=== PATIENT | female | born 1965 | race Caucasian/White ===

== ENCOUNTER 2019-01-19 07:23 | Emergency (ER) | payer OTHER, SELFPAY ==
[2019-01-19 07:24] VITALS: BP 136/82; PULSE 58; RESP 16; TEMP 36.4; O2SAT 98; BMI 27.1
--- NOTE | 2019-01-19 07:38 | ED.VISSUMM ---
- ER Visit Summary Date of Service: 01/19/19 Chief Complaint: Back pain History of Present Illness: The patient is a 53 F who presents the emergency department with low back pain. Patient states that yesterday she was in her garage working she suddenly felt her back tighten. She states she has had significant painful range of motion. She notes pain radiating from the low back into the bilateral buttocks and the posterior thighs. She denies any bowel or bladder dysfunction. Denies any muscle weakness or loss of sensation. No fevers. No IV drug use. No rashes. History of the same though this has not been to this extent for about 12 years. No prior back surgeries. She has been using naproxen without relief. Physical Examination: Afebrile vital signs stable Gen: Well-nourished well-developed Head: Normocephalic atraumatic Eyes: Perrl EOMI ENT: TMs clear no rhinorrhea moist mucous membranes Neck: Supple no lymphadenopathy no JVD nontender CVS: Regular rate rhythm no murmurs normal S1-S2 Respiratory: No distress clear to auscultation bilaterally chest nontender Abdomen: Soft nontender nondistended normal bowel sounds no masses Back: Visible and palpable muscle spasm right greater than left of the lumbar paraspinal musculature. Limited range of motion due to pain. Extremity: Nontender no edema Skin: Normal color no rash Neuro: alert orientated ?3 CN II-XII intact normal strength sensation reflexes antalgic gait Psych: Normal affect normal mood Emergency Department Course and Treatment: Patient received oral Valium and [place] as well as IM Toradol. She will receive a prescription for same. We talked about stretching. Return instructions understood. Aloe up with primary care return if worsening Impression: 1. Acute lumbar muscle spasm 2. Sciatica This note was generated with [email or web address] dictation software. It may contain incorrect words, spelling, and punctuation that were not noted in review of the chart prior to signing ED Disposition - Plan for ED Patient: Disposition: Home or Assisted Living Instructions: ED Spasm Back No Trauma Prescriptions: Hydrocodone Bitart/Apap 5-325 [[place] 5MG-325MG] 1 tab PO Q6H PRN PRN 3 Days #12 tab PRN Reason: Pain Diazepam [Valium] 5 mg PO Q8 PRN #15 tab PRN Reason: Muscle Spasm Ketorolac [Toradol] 10 mg PO TID PRN PRN #15 tab PRN Reason: Pain Referrals: Titus Elliott MD [Primary Care Provider] - 1 Week if not improving
[2019-01-19] MEDS: HYDROcodone Bitartrate/Apap 5/325 Tablet PO (07:42)
[2019-01-19] MEDS: diazePAM 5 MG Tablet PO (07:42)
[2019-01-19] MEDS: Ketorolac 60 MG/2 ML Vial IM (07:43)
--- NOTE | 2019-01-19 07:47 | ED.DCSUM_ITS ---
- ER Visit Summary Date of Service: 01/19/19 Chief Complaint: Back pain History of Present Illness: The patient is a 53 F who presents the emergency department with low back pain. Patient states that yesterday she was in her garage working she suddenly felt her back tighten. She states she has had significant painful range of motion. She notes pain radiating from the low back into the bilateral buttocks and the posterior thighs. She denies any bowel or bladder dysfunction. Denies any muscle weakness or loss of sensation. No fevers. No IV drug use. No rashes. History of the same though this has not been to this extent for about 12 years. No prior back surgeries. She has been using naproxen without relief. Physical Examination: Afebrile vital signs stable Gen: Well-nourished well-developed Head: Normocephalic atraumatic Eyes: Perrl EOMI ENT: TMs clear no rhinorrhea moist mucous membranes Neck: Supple no lymphadenopathy no JVD nontender CVS: Regular rate rhythm no murmurs normal S1-S2 Respiratory: No distress clear to auscultation bilaterally chest nontender Abdomen: Soft nontender nondistended normal bowel sounds no masses Back: Visible and palpable muscle spasm right greater than left of the lumbar paraspinal musculature. Limited range of motion due to pain. Extremity: Nontender no edema Skin: Normal color no rash Neuro: alert orientated ?3 CN II-XII intact normal strength sensation reflexes antalgic gait Psych: Normal affect normal mood Emergency Department Course and Treatment: Patient received oral Valium and [place] as well as IM Toradol. She will receive a prescription for same. We talked about stretching. Return instructions understood. Aloe up with primary care return if worsening Impression: 1. Acute lumbar muscle spasm 2. Sciatica This note was generated with [employer] dictation software. It may contain incorrect words, spelling, and punctuation that were not noted in review of the chart prior to signing ED Disposition - Plan for ED Patient: Disposition: Home or Assisted Living Instructions: ED Spasm Back No Trauma Prescriptions: Hydrocodone Bitart/Apap 5-325 [[place] 5MG-325MG] 1 tab PO Q6H PRN PRN 3 Days #12 tab PRN Reason: Pain Diazepam [Valium] 5 mg PO Q8 PRN #15 tab PRN Reason: Muscle Spasm Ketorolac [Toradol] 10 mg PO TID PRN PRN #15 tab PRN Reason: Pain Referrals: Titus Elliott MD [Primary Care Provider] - 1 Week if not improving
[2019-01-19 08:16] VITALS: BP 128/30; PULSE 55; RESP 17; O2SAT 99
== END 2019-01-19 08:17 | disposition home or self-care (01) ==
PROVIDERS: Emergency Provider Emergency Medicine; Family Provider Family Medicine; PCP Family Medicine
DX: M62.830 Muscle spasm of back (principal); M54.40 Lumbago with sciatica, unspecified side; F32.9 Major depressive disorder, single episode, unspecified
CPT/HCPCS: 96372; 99283

== ENCOUNTER → 2020-04-29 17:52 | Outpatient (CLI) | payer OTHER, SELFPAY | PROVIDERS: PCP Family Medicine; Referring Provider Nurse Practitioner Family; Visit Provider Nurse Practitioner Family | DX: Z20.828 Contact with and (suspected) exposure to other viral communicable diseases (principal) | CPT/HCPCS: 87635; G2023; U0003 ==

== ENCOUNTER 2020-05-02 09:16 | Emergency (ER) | payer OTHER, SELFPAY ==
[2020-05-02 09:17] VITALS: BP 153/105; PULSE 54; RESP 18; TEMP 36.6; O2SAT 98; BMI 27.4
[2020-05-02 09:25] VITALS: BP 160/98; PULSE 52; RESP 13; O2SAT 98
--- NOTE | 2020-05-02 09:33 | EKG12_ITS ---
Test Reason : Blood Pressure : / mmHG Vent. Rate : 057 BPM Atrial Rate : 057 BPM P-R Int : 170 ms QRS Dur : 078 ms QT Int : 458 ms P-R-T Axes : 034 034 048 degrees QTc Int : 445 ms Sinus bradycardia Otherwise normal ECG Confirmed by BRINA PINA, CHARMAINE ([id number]), editor news BOB CLARKE ([id number]) on 05/04/2020 1:09:12 PM Referred By: MOMO Confirmed By:CHARMAINE GONSALVES MD
--- NOTE | 2020-05-02 09:33 | RAD_ITS ---
STUDY: X-RAY CHEST REASON FOR EXAM: Female, 54 years old. PT WITH CHEST PAIN SINCE MARCH. PAIN IS NOT WANING. STAYS CONSTANT. WORSE WITH DEEP BREATH TECHNIQUE: Single AP portable view of the chest. COMPARISON: Comparison is made with prior study dated September 27, 2015. FINDINGS: EKG electrodes are seen. The lungs are clear and expanded. There is no demonstrated pleural abnormality. Normal size heart. Normal mediastinum and dewayne. Normal visualized pulmonary arteries. There is atherosclerotic tortuosity of the aortic arch and descending thoracic aorta. Normal visualized thoracic spine. Normal visualized ribs, clavicles, and shoulders. There is no demonstrated abnormality of the visualized soft tissue structures of the upper abdomen. RAD/Chest 1 View (Portable) IMPRESSION: Normal x-ray examination of the chest. Electronically Signed: Lex Ho, at 10:03 EDT , Service support ,
[2020-05-02 09:39] VITALS: O2SAT 98
[2020-05-02] MEDS: Aspirin 81 MG TAB.CHEW 324 MG PO (09:40)
[2020-05-02] MEDS: 0.9% Normal Saline 1,000 ML 150 ML IV (09:43)
[2020-05-02 09:45] LABS: Absolute Lymphocyte Count 1.94 X10^3/uL (0.83-4.51); Absolute Neutrophil Count 4.8 X10^3/uL (2.0-7.7); Basophil# 0.02 X10^3/uL; Basophil% 0.3 % (0-1); Eosinophil# 0.12 X10^3/uL; Eosinophils% 1.6 % (0-5); Hematocrit 45.2 % (37-47); Hemoglobin 14.7 g/dL (12.0-15.0); Lymphocyte # 1.94 X10^3/ul (4.0); Lymphocyte % 26.3 % (19-41); Mean Corp Hgb Conc 32.5 g/dL (32-36); Mean Corpuscular Hgb 31.4 pg (27.0-32.0); Mean Corpuscular Volume 96.6 fL (81-99); Mean Platelet Vol. 10.8 fl (6.2-12.0); Monocyte# 0.48 X10^3/uL; Monocyte% 6.5 % (0-10); NRBC Flagged by Analyzer 0 % (0-5); Neutrophil # 4.81 X10^3/uL (2.7-7.7); Platelet Count 234 K/mm3 (150-450); RBC Distribution Width CV 14.3 % (11.6-14.6); RBC Distribution Width SD 49.8 fl (35.1-43.9); Red Blood Count 4.68 M/mm3 (4.2-5.4); White Blood Count 7.4 K/mm3 (4.4-11.0)
--- NOTE | 2020-05-02 09:45 | ED.DCSUM_ITS ---
- ER Visit Summary Date of Service: 05/02/20 Chief Complaint: [Chest pain] History of Present Illness: The patient is a 54 F [presents to the emergency department complaint of chest discomfort for the last 2 weeks. Patient states the discomfort is been continuous and kind of a dull ache. The discomfort does not seem to be exertional. Patient states she notices more when she takes a deep breath. She denies any fever or cough or recent illness. Patient was recently in [place] and they did drive there. She has no history of PE or DVT. Patient had a rash to weeks ago for which she was treated with prednisone that initially was thought to be poison thom then was told it may be a viral exanthem. The rash is since resolved. Patient has history of hypertension but not currently medicated states that her blood pressure normally runs in the 145 systolic range. Patient has not had discomfort quite like this before. She denies any abdominal pain. She has no heart history. No significant family history of heart disease. Patient denies any nausea or vomiting or radiation of the pain.] Patient does have history of bradycardia. Physical Examination: [HEENT-PERRLA, EOMI. Cranial nerves II through XII grossly intact. TMs clear. Mucous membranes moist. No adenopathy. Cardiovascular-regular rate and rhythm without murmur or ectopy Lungs-clear to auscultation, chest wall stable without crepitus or subcu emphysema Abdomen-normoactive bowel sounds, soft, nontender, no rebound or rigidity, no peritoneal signs. Extremities-intact ?4, normal range of motion, normal pulses, atraumatic] Test Results: [EKG obtained on arrival shows sinus rhythm with a ventricular rate of 57 bpm with no acute ST segment changes. CBC with differential was unremarkable. Chemistries unremarkable. Troponin was less than 0.015. D-dimer was slightly elevated 0.55. Chest x-ray showed nothing acute. CTA of the chest was negative for PE or dissection.] Emergency Department Course and Treatment: [Patient received aspirin on arrival. She refused nitroglycerin tablets.] Treatment Plan: [Discussed with patient that she is a MELODIE risk score of 0 and feel she is low risk for acute coronary syndrome given that she is had continuous pain for over 2 weeks and has a normal work-up at this time. Patient also does not have exertional symptoms. I discussed with patient admission for stress testing versus outpatient stress testing. At this point are comfortable with following up with primary care physician and having an outpatient stress test performed if symptoms persist. They are advised to return to the ER if worsening pain, exertional symptoms, or condition should worsen anyway.] Disposition: [Discharged home in stable condition] Impression: [Chest pain-etiology uncertain] This note was generated with [employer] dictation software. It may contain incorrect words, spelling, and punctuation that were not noted in review of the chart prior to signing ED Disposition - Plan for ED Patient: Referrals: Titus Elliott MD [Primary Care Provider] -
[2020-05-02 09:59] LABS: D-Dimer Quantitative (DVT/PE) 0.55 FEU/ug/m (0.27-0.49)
--- NOTE | 2020-05-02 10:00 | CT_ITS ---
STUDY: CTA CHEST REASON FOR EXAM: Female, 54 years old. PT STATED CHEST PAIN X 2 WEEKS RADIATION DOSAGE (If Supplied By Facility): CTDIvol = ( 11.98 ) mGy, DLP = ( 405.07 ) mGycm TECHNIQUE: The examination was performed with the intravenous administration of 100ML ISOVUE 370. Post-processing of the angiographic images was performed, with multiplanar reformation and 3D reconstruction. Individualized dose optimization techniques were used for this CT. COMPARISON: None. FINDINGS: Normal enhancement of the main pulmonary artery and right and left pulmonary arteries. Normal enhancement of the bilateral peripheral pulmonary arteries. There is no demonstrated pulmonary embolism. Normal thoracic aorta and visualized great vessels. There is no demonstrated aortic dissection. Normal heart and pericardium. Normal mediastinum. Normal hilar regions. Normal visualized trachea and bronchi. The lungs are well expanded. Normal pulmonary parenchyma. Normal pleura. Normal chest wall structures. There are degenerative changes of thoracic spine. There is a 1.6 cm x 1.2 cm hypodense nodule in the left adrenal gland suggestive of a small adrenal adenoma. CT/CTA Chest W/WO Contrast IMPRESSION: Normal CTA chest examination, without a demonstrated pulmonary embolism or arterial dissection. Small left adrenal adenoma. Electronically Signed: Lex Ho, at 10:53 EDT , Service support ,
[2020-05-02 10:01] LABS: Anion Gap 8 (5-15); BUN 9 mg/dL (7-18); Calcium,Total 8.7 mg/dL (8.5-10.1); Chloride 102 mmol/L (98-107); EST Glomerular Filtration Rate 69 mL/min (>60); Est Glom Filt Rate - Afr Amer 84 mL/min (>60); Estimated Creatinine Clearance 67.67 ml/min; Glucose 112 mg/dL (74-106); Potassium 3.6 mmol/L (3.5-5.1); Sodium Level 138 mmol/L (136-145)
[2020-05-02 10:23] VITALS: BP 145/87; PULSE 46; RESP 11; O2SAT 100
[2020-05-02 11:03] VITALS: BP 150/77; PULSE 41; RESP 10; O2SAT 96
--- NOTE | 2020-05-02 11:22 | ED.DEP ---
ED Disposition - Plan for ED Patient: Instructions: ED Chest Pain Atypical Unkn Cause Referrals: Titus Elliott MD [Primary Care Provider] - 3-5 Days
[2020-05-02 11:56] VITALS: BP 158/79; PULSE 74; RESP 18; O2SAT 98
--- NOTE | 2020-05-02 11:57 | ED.RN ---
THIS NURSE REVIEWED D/C WITH PT AND VISITOR. PT VERBALIZED UNDERSTANDING OF INSTRUCTIONS. IV D/C. IV CATHETER INTACT. PT TOLERATED WELL. PT DENIES FURTHER NEEDS OR QUESTIONS AT THIS TIME. PT AMBULATES FROM ROOM ON OWN WITHOUT ASSISTANCE FROM STAFF
== END 2020-05-02 11:59 | disposition home or self-care (01) ==
LOC: ED 10:41
PROVIDERS: Emergency Provider Emergency Medicine; PCP Family Medicine
DX: R07.9 Chest pain, unspecified (principal)
CPT/HCPCS: 71045; 71275; 80048; 84484; 85025; 85379; 93005; 96360; 96361; 99284; J7030; Q9967; A4216

== ENCOUNTER 2020-12-29 14:37 | Observation (INO) | payer OTHER, SELFPAY ==
[2020-12-22 10:39] LABS: Hematocrit 44.1 % (37-47); Mean Corp Hgb Conc 31.7 g/dL (32-36); Mean Corpuscular Volume 94.6 fL (81-99); Mean Platelet Vol. 10.9 fl (6.2-12.0); Platelet Count 266 K/mm3 (150-450); RBC Distribution Width CV 13.7 % (11.6-14.6); RBC Distribution Width SD 48.1 fl (35.1-43.9); Red Blood Count 4.66 M/mm3 (4.2-5.4); White Blood Count 5.7 K/mm3 (4.4-11.0)
--- NOTE | 2020-12-26 08:40 | HP.PCM_ITS ---
- Problem List (1) Pelvic pain Status: Acute (2) Fibroid uterus Status: Acute History and Physical Date of Admission: 12/29/20 DATE OF SERVICE: December 19, 2020 ? PROBLEM:?pelvic pain, fibroids ? DIAGNOSIS:?pelvic pain, fibroids ? SUBJECTIVE:?Had ablation in 2010.?She had a recent episode of irregular bleeding with a negative biopsy.?Currently sexually active in same sex?marriage.?She reports she talked to Dr. Ma and her partner about a hysterectomy and they both recommended it. The patient is concerned about prolapse?in addition to the pelvic pain she has been having. ? FSH 80.6 ? EMB: FINAL DIAGNOSIS A: Endometrial, biopsy - Fragmented weakly proliferative endometrium - Benign endocervical mucosa with squamous metaplasia Comment: The biopsy consists of detached fragments of superficial endometrium as well as underlying glands and stroma. Proliferative activity is scattered. Given the nature of the biopsy, assessment of architecture is precluded. ? Pelvic US: Indication: follow up ultrasound. Pelvic pain. History: Last menstrual period: 07/27/2019. 37th day of cycle. Gynecological History: Past gynecological operations: Ablation 2010. Gynecological Ultrasonography: Uterus: normal, anteverted. Size: Longitudinal 105 mm. Anterio- posterior 51 mm. Transverse 57 mm. Volume: 159.8 ml. Fibroids: Fibroid 1: Size: 15 mm x 13 mm x 14 mm. Type: anterior. Position: rt mid ?uterus. Fibroid 2: Size: 34 mm x 29 mm x 28 mm. Position: left lateral wall. Endometrium: endometrium clearly visualized. Endometrium thickness total: 5.9 mm. Right Ovary: normal. Visible. Morphology: normal morphology. Right Ovary size: 16 mm x 17 mm x 9 mm. Volume: 1.3 ml. Left Ovary: normal. Visible. Morphology: normal morphology. Left Ovary size: 17 mm x 20 mm x 24 mm. Volume: 4.3 ml. Cul de Sac / Pouch of Mir: no free fluid visible. ? PAST SURGICAL HISTORY:? PAST SURGICAL HISTORYExpand by Default PAST SURGICAL HISTORY Procedure Laterality Date ? COLONOSCOP W/ OR W/O BRSH SPEC ? 04/04/2017 ? Colonoscopy, repeat in 10 years ? 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 10/2016 ? LIGATE FALLOPIAN TUBE ? 1994 ? Tubal ligation ? S BALLOON,UTERINE ABLATION 81073 ? 2010 ? VAGINOSCOPY ? 09/2016 ? PAST MEDICAL HISTORY:? PAST MEDICAL HISTORYExpand by Default PAST MEDICAL HISTORY Diagnosis Date ? Anxiety ? ? ANGELITO I (cervical intraepithelial neoplasia I) ? ? LEEP 2016 ? Hyperlipidemia ? ? Hypertension ? ? Overweight (BMI 25.0-29.9) ? ? Pap smear of cervix with ASCUS, cannot exclude HGSIL ? ? NEG HPV ? Vitamin D deficiency ? ? SOCIAL HISTORY:? SOCIAL HISTORYExpand by Default Social History ? Tobacco Use ? Smoking status: Never Smoker ? Smokeless tobacco: Never Used Substance Use Topics ? Alcohol use: Yes ? ? Alcohol/week: 12.5 standard drinks ? ? Types: 5 Cans of Beer (12oz) per week ? ? Comment: weekly ? Drug use: No ? ALLERGIESExpand by Default ALLERGIES No Known Allergies ? Current Outpatient Medications on File Prior to Visit Medication Sig ? losartan (COZAAR) 25 mg tablet Take 1 tablet by mouth once daily. ? escitalopram oxalate (LEXAPRO) 20 mg tablet Take 1 tablet by mouth once daily. ? vitamin b complex tab Take 1 tablet by mouth once daily. ? Zinc 50 mg tab Take by mouth. ? Ascorbic Acid (VITAMIN C) 1,000 mg tablet Take 1 tablet by mouth once daily. ? Cholecalciferol, Vitamin D3, 50 mcg (2,000 unit) cap Take by mouth once daily. ? MULTIVIT &MINERALS/FERROUS FUM (MULTI VITAMIN ORAL) Take ?by mouth once daily. No current facility-administered medications on file prior to visit. ? OBJECTIVE: ? VITALS: BP 120/74 ? Pulse 60 ? Resp 14 ? Ht 5' 6 (1.676 m) ? Wt 165 lb 12.8 oz (75.2 kg) ? LMP 07/01/2011 ? BMI 26.76 kg/m? ? HEENT: ?Normocephalic, atraumatic, Mucus membranes moist without lesions. ? NECK: ???Soft and Supple. ?No adenopathy , thyromegaly or bruits. ? SKIN: No lesions. ? CHEST: Clear to auscultation. ?No wheezes or rales. ?Good air exchange. ? HEART: Regular rate and rhythm ?No S3 or S4. ?No gallops or rubs. ? BACK: Nontender with no CVA tenderness. ? ABDOMEN: Soft, non-tender, non-distended, no masses, no hepatosplenomegaly. ? ? LOWER EXTREMITIES: There was no pitting edema, no palpable cords and no skin changes. ? ? ? ASSESSMENT:?fibroid uterus, pelvic pain, patient desires hysterectomy ? PLAN:?Discussed today that given she is not having any more vaginal bleeding, age 55, and elevated FSH it is likely that she is post menopausal. Would not expect any additional bleeding, and if so would need evaluated. Discussed the fibroids are unlikely to be the cause of her pain. Discussed that fibroids can get smaller in size in post menopausal woman. Also discussed a hysterecomy can cause or worsen pelvic pain. She understands the hysterectomy may worsen or not improve her pain. Discussed if fibroid is pedunculated, it may need removed first. Discussed possibility of laparotomy given fibroids. Discussed possibility for prolapse after a hysterectomy, and option for seeing a uro instructional systems specialist for surgery. Patient declines referral to uro crop consultant at this time. She desires a hysterectomy. Discussed CHARLES DOMINGUEZ, possible TVH, possible laparotomy.?The rationale for the proposed surgery was discussed in addition to risks, benefits, and alternatives. ?General pre- and post-operative care was reviewed. ?Questions were answered. ?After discussion, the patient indicated a desire to proceed with the planned surgery. ? Conchis Mensah,?DO
[2020-12-29] VITALS (12 sets, daily range): BP systolic 95–153; BP diastolic 56–94; PULSE 45–62; RESP 12–16; TEMP 36.4–37.2; O2SAT 97–100; BMI 27.1
[2020-12-29] MEDS: Enoxaparin 40 MG/0.4 ML Syringe SC (07:00)
[2020-12-29] MEDS: Lactated Ringers 1,000 ML 40 ML IV ×3 (07:00→16:30)
[2020-12-29] MEDS: Scopolamine 1mg/72hr Patch 1 PATCH TD (07:00)
[2020-12-29] MEDS: Gabapentin 600 MG Tablet PO (07:00)
[2020-12-29] MEDS: Celecoxib 200 MG Capsule 400 MG PO (07:00)
[2020-12-29] MEDS: Acetaminophen 500 MG Tablet 1000 MG PO ×2 (07:00→19:03)
[2020-12-29] MEDS: dexAMETHasone 10 MG/ML Vial 8 MG IV (07:00)
[2020-12-29 10:45] LABS: Internal QC Validated? YES +Cl - CLEAR BKGD; Pregnancy, Urine Negative Negative
[2020-12-29 11:01] LABS: Bedside Glucose 113 mg/dL (70-110)
[2020-12-29] MEDS: Cefazolin 2 GM in 0.9% Normal Saline 100 ML IV (12:06)
--- NOTE | 2020-12-29 12:15 | HYST_PTH ---
PATIENT: TENISHA TOLLIVER LOC: [facility] U#:[id number] AGE/SX: 55/F ROOM: MI322 RE12/29/[address]: Dr. Conchis Mensah DO : 1965 BED: 1 DIS: 12/30/2020 SPEC #: [id number] RECD: 12/29/20 15:23 STATUS: CRISTO AMANDA #: [id number] ISABELL: 12/29/20 12:[address]: Conchis Mensah DEPT: SURGICAL PATHOLOGY RECD BY: Shirley Borrero ENTERED: 12/30/20 08:22 SP TYPE: HYSTERECT OTHR DR: MD Dr. Stephanie Ace MD Tissues: Uterus, NOS Procedures: Surgery Specimen Level V HEADER OPERATION: ERAS, laparoscopic vaginal hysterectomy, salpingectomy PRE-OP DIAGNOSIS: Fibroid uterus, pelvic pain TISSUE SUBMITTED: Uterus, bilateral fallopian tubes MICROSCOPIC DIAGNOSIS Uterus, hysterectomy: Cervix - nabothian cysts, mild chronic inflammation and focal squamous metaplasia. Endometrium - weakly proliferative to inactive endometrium. Myometrium - leiomyomas and adenomyosis. Right and left fallopian tubes - benign paratubal cyst. SJ:harrison 01/02/2021 MICROSCOPIC DESCRIPTION Slides are reviewed. GROSS DESCRIPTION Received in fixative is one container labeled with the patient's name and designated uterus and bilateral fallopian tubes. The specimen consists of a hysterectomy specimen consisting of uterus with cervix and detached bilateral fallopian tubes. The uterus with cervix weighs 82 gm and measures 8 x 7 x 5 cm. The body of the uterus is distorted due to presence of subserosal nodular mass. The serosal surface is congested and focally jagged. The ectocervical mucosa is unremarkable. The external os is slit-like in contour. The endocervical canal measures 2.5 cm in length and the endocervical mucosa is goddard, glistening and unremarkable. The endometrial cavity is narrow and measures 4 cm in length and 0.5 cm in width. Sections of the uterine wall reveal two subserosal masses, one is small, intramural mass. The subserosal masses measure 1 and 3.5 cm in greatest dimension and the intramural mass measures 0.2 cm in diameter. Sections of these masses reveal goddard whorled cut surfaces without areas of hemorrhage, necrosis or cystic degeneration. The uninvolved uterine wall measures up to 2 cm in thickness. The fallopian tubes are not identified as right or left and each measures 2.5 cm in length and 0.4 cm in diameter. Tuber Machine Operator sections are submitted in ten cassettes as follows: 1 - anterior cervix, 2??posterior cervix, 3 & 4 - anterior uterine wall, 5 & 6 - posterior uterine wall, smallest intramural nodular mass, 7 - largest subserosal nodular mass, 8 - second largest subserosal nodular mass, 9 & 10 - bilateral fallopian tubes with each cassette containing one fallopian tube. The fallopian tubes are submitted in entirety. / LAMAR:harrison 12/30/20 TC:1 CPT: 25461
[2020-12-29] MEDS: Bupivacaine Mpf 0.5% 30 ML VIAL INFILT (13:23)
[2020-12-29] MEDS: Lidocaine 1%/Epi 1:200 (30ml) 30 ML AMPUL INFILT (13:30)
--- NOTE | 2020-12-29 14:07 | OP.PCM_ITS ---
Problem List (1) Stress incontinence Status: Acute Report of Operation Date of Procedure: 12/29/20 Pre-Operative Diagnosis: stress incontinence Post-Operative Diagnosis: same Surgery/Procedure Performed:: midurethral sling, cystoscopy Type of Anesthesia:: General Specimen's removed: none Estimated Blood Loss (mL): 10cc Description of Procedure: The patient is a 55-year-old female with stress urinary incontinence who underwent urodynamics and evaluation in the office prior to consultation regarding sling insertion. Informed consent was then obtained and this included a discussion of the risks of COVID-19. The patient made the decision to proceed with surgical intervention with hysterectomy per Dr. Mensah. Patient was taken to the operating room and placed on the operating room table. Anesthesia monitored the head, neck, airway, IV access and vital signs throughout the case. Once anesthesia was appropriately administered the patient was placed into dorsal lithotomy position was prepped and draped in usual sterile fashion. The patient's bladder was drained with a Sommers catheter. The mid urethra was infiltrated submucosally with lidocaine with epinephrine for hydrostatic dissection and hemostatic control. A midline incision was made approximately 1.5 cm in length. Sharp and blunt dissection was performed on either side of the urethra at this time the alto's mid urethral sling was inserted using the trochars into the transobturator complexes bilaterally. Care was taken to avoid entrance into the vaginal mucosa and into the urinary bladder. The sling was positioned against the urethra without tension. The sling lay in a flat position and the tensioning suture was cut. The midline incision was closed using running interlocking 2-0 Vicryl. At this time a cystourethroscopy was performed revealing no evidence of injury to the urinary bladder or urethra. Each ureteral orifice was located in the correct anatomic position and the area of the trigone. Each orifice was intubated with a 5 Latvian whistle-tip catheter which was inserted to 26 cm. Clear urine was seen coming from the end of the catheter from both kidneys. There was no blood upon removal of the catheters. At this time the bladder was left minimally full with irrigant in the cystoscope was removed. The patient was then cleaned, awakened and taken to the recovery room in good condition. There were no complications during this procedure. Grafts/Implants Used: Altis midurethral sling - Complications none - Admit VTE Documentation VTE Present on Admission: Yes VTE Mechan Device Prophylaxis: SCD's VTE Pharm Prophylaxis ordered?: No Reason prophylaxis not ordered:: Treatment Not Indicated
--- NOTE | 2020-12-29 14:09 | PCM.DC.URO ---
Discharge Diet: No Restrictions Discharge Activity: May Shower, - - no tub bathing, hot tubs or swimming no lifting over 5 pounds, no exercising, no sexual activity, no strenuous activity May resume sexual activity in: 4-6 weeks Lifting Restrictions: 5 pounds Call your doctor if your incision/area has: Continuous Slow Oozing, Sudden Increased Bleeding, Increased Pain/ Swelling, Foul Smelling Discharge, Swelling at the incision site Call your doctor if you observe: Fever of 101 or Higher, Inability to urinate, Inability to have a bowel movement, Calf discomfort, Uncontrolled pain Allergies/Adverse Reactions: Allergies No Known Allergies Allergy (Verified 12/29/20 10:21) Medications to take at Discharge Escitalopram Oxalate [Lexapro] 10 mg PO DAILY 09/07/17 Losartan Potassium [Cozaar] 25 mg PO DAILY 12/22/20 Cephalexin [Keflex] 500 mg PO Q12 3 Days #6 cap 12/29/20 The following prescriptions were given: Cephalexin [Keflex] 500 mg PO Q12 3 Days #6 cap Transmission Status: Pending to [id number] Orders to be completed after discharge: ,Urine Time Frame: 1 Week, Facility: [facility], Location: Laboratory Primary Care Physician: Titus Elliott MD [Primary Care Provider] - Test Results: Test results from this visit will be discussed in further detail at your follow-up appointment, if applicable. Please Follow Up With: Stephanie Nunn MD When: 2 weeks, call for appt Proposed Discharge Date: 12/29/20
--- NOTE | 2020-12-29 14:39 | OP.PCM_ITS ---
Problem List (1) Pelvic pain Status: Acute (2) Fibroid uterus Status: Acute Report of Operation Date of Procedure: 12/29/20 Pre-Operative Diagnosis: Fibroid uterus, pelvic pain Post-Operative Diagnosis: As above Surgery/Procedure Performed:: LAVH, BS, lysis of adhesions Description of Surgical Findings:: Thin filmy adhesions of the omentum to the left adnexa. Minimal bowel adhesions to the left pelvic sidewall. Prior tubal was noted. Bilateral fallopian tubes and bilateral ovaries were normal-appearing. There was a 3 to 4 cm intramural f ibroid that was present in the left lower uterine segment. The uterus was otherwise unremarkable. waterworks pump station operator: Rosa Narvaez - She assisted with the entire surgery from pr epping and draping the patient, to closure. Type of Anesthesia:: General Special Medications: None Specimen's removed: Uterus, cervix, bilateral fallopian tubes Drains: Sommers Estimated Blood Loss (mL): 400 Fluids Replaced: 1400 Description of Procedure: Start time 1238 Stop time 1435 General anesthesia was induced and the patient was placed in dorsal lithotomy position using yellowfin stirrups. The patient was prepped and draped in usual sterile fashion. Sommers catheter was inserted to the bladder. A weighted speculum was placed into the vagina to expose the cervix. The anterior lip of the cervix was grasped with single-tooth tenaculum. The Nora uterine manipulator was placed. Gloves were then changed and attention was turned to the abdominal portion of the procedure. All port sites were infiltrated with Marcaine. An infraumbilical incision was made to accommodate a 5 mm scope. The 5 mm port was placed under direct visualization using the laparoscope. Once confirmed intraperitoneal, CO2 insufflation was initiated. A pneumoperitoneum of 15 mmHg created. A left lateral 5 mm port was placed. A right lateral 5 mm port was placed. Visualization of the peritoneal cavity was obtained and a brief inspection did not reveal any signs of complication from entry. Beginning on the left side, the LigaSure device was used to dissect the thin filmy adhesions of the omentum to the left adnexa. The left fallopian tube was followed out to the fimbriated end and the mesosalpinx was exposed. The mesosalpinx was then sequentially clamped, ligated and cut using the LigaSure device towards the cornua. Once the level of the cornua was reached the tube was cut and removed. The same process was repeated on the right sequentially clamping, ligating, and cutting the mesosalpinx to remove the right fallopian tube. The right round ligament was then ligated and cut, and the anterior leaf of the broad ligament was then taken down on the right side dissecting towards the peritoneal reflection at the base of the bladder and adjacent to the cervix. The same process was repeated on the left side such that both sides met and the anterior leaflet had been appropriately skeletonized. The pedicles of the cardinal ligament were ligated and divided on either side using the LigaSure device. Attention was then turned to the vaginal portion of the procedure. Speculum was placed in the vagina and the manipulator was removed. The tenaculum was repositioned anterior and posterior. A circumferential incision was made at the cervical vaginal reflection after infiltration of local using the scalpel. This was undermined first posteriorly and a colpotomy was made. This was undermined then anteriorly and the colpotomy was made. Martha retractors were then placed into each of these incisions. Beginning first on the patient's left, the uterosacral and cardinal ligament was clamped, divided, suture ligated. Same process was then repeated on the patient's right side. The cardinal ligaments were clamped, divided and suture ligated on both sides until the specimen was completely freed. The uterus and cervix were removed transvaginally without difficulty. The fallopian tubes were removed during the laparoscopic portion of the surgery. A left pedicle was noted to be bleeding. This pedicle was clamped and suture ligated for hemostasis. Pedicles were the inspected again and good hemostasis was confirmed. Several [id number] sutures were placed along the vaginal vault to close it. All sutures were trimmed. A sponge was placed in the vagina and attention was turned back to the abdomen. Gloves were changed. All instruments were removed from the vagina at this time other than the sponge stick. Using the laparoscopic irrigation device, the abdomen was carefully irrigated and inspected to ensure complete hemostasis. Shira was placed over the vaginal cuff and pedicles. Once the entire abdomen was inspected and hemostasis was noted, the ports were removed under direct visualization to be sure hemostasis the port sites were noted on removal. The incisions were then closed with interrupted Monocryl sutures. The vaginal sponge stick was remove and at this point Dr. Ma completed her portion of the procedure. See Dr. Ma's operative report for details. Grafts/Implants Used: None - Complications None - Admit VTE Documentation VTE Present on Admission: No VTE Mechan Device Prophylaxis: SCD's VTE Pharm Prophylaxis ordered?: No
[2020-12-29] MEDS: Ketorolac 30 MG/ML Syringe IV (19:05)
--- NOTE | 2020-12-29 21:55 | NURSING ---
Sommers catheter inserted at this time per physician's orders. 600cc of clear, pale urine drained immediately into Sommers bag. Pt tolerated procedure well.
[2020-12-29] MEDS: Docusate Sodium 100 MG Capsule PO (22:08)
[2020-12-30 00:13] VITALS: BP 126/74; PULSE 45; RESP 18; TEMP 36.5; O2SAT 99
[2020-12-30] MEDS: Acetaminophen 500 MG Tablet 1000 MG PO ×2 (00:26→06:34)
[2020-12-30] MEDS: Ketorolac 30 MG/ML Syringe IV ×2 (00:26→06:34)
[2020-12-30 04:17] VITALS: BP 136/78; PULSE 46; RESP 18; TEMP 36.5; O2SAT 100
[2020-12-30 06:40] LABS: Hematocrit 36.8 % (37-47); Hemoglobin 11.7 g/dL (12.0-15.0); Mean Corp Hgb Conc 31.8 g/dL (32-36); Mean Corpuscular Volume 94.4 fL (81-99); Mean Platelet Vol. 10.7 fl (6.2-12.0); Platelet Count 222 K/mm3 (150-450); RBC Distribution Width CV 13.7 % (11.6-14.6); RBC Distribution Width SD 47.2 fl (35.1-43.9); White Blood Count 8.9 K/mm3 (4.4-11.0)
--- NOTE | 2020-12-30 07:00 | PN.OBGYN_ITS ---
Patient Problems: Active and Suspected Problems Pelvic pain (Acute) Fibroid uterus (Acute) Stress incontinence (Acute) Subjective: Patient is doing well. She desires to go home today. Pain well controlled. Ambulating without lightheadedness or dizziness, no chest pain or shortness of breath. Pain is well controlled. She is having some cramping. No heavy vaginal bleeding. Sommers is in place as she difficulty voiding last night. She is passing gas. She is tolerating a diet without nausea or vomiting. - Physical Exam Vitals/I&O's: Vital Signs Temp Pulse Resp BP Pulse Ox 97.7 F L 46 L 18 136/78 H 100 12/30/20 04:17 12/30/20 04:17 12/30/20 04:17 12/30/20 04:17 12/30/20 04:17 Oxygen Flow Rate (L/min) 2 Oxygen Delivery Method Room Air Weight: 167 lb 12.348 oz Body Mass Index (BMI) 27.1 Intake and Output for Last 24 Hours 12/28/20 12/29/20 12/30/20 23:59 23:59 23:59 Intake Total 1655.17 / 2255.17 1666.67 / 1666.67 Output Total 950 / 2400 2650 / 2650 Balance 705.17 / -144.83 -983.33 / -983.33 General: Alert, No apparent distress HEENT: Atraumatic Abdomen: Soft, Non-Distended, - - ATTP, incisoins c/d/i Extremities: No edema, No Calf Tenderness Skin: No rashes Neurological: Neuro grossly intact Psych/Mental Status: Normal Affect, Appropriate Microbiology Past 72 Hours 12/28/20 08:30 Interface Orders SARS-CoV-2 Antigen (Rapid) - Final Laboratory Results 12/29/20 10:36: Urine Test Negative 12/29/20 10:53: POC Glucose 113 H 12/30/20 06:20: WBC 8.9, RBC 3.90 L, Hgb 11.7 L, Hct 36.8 L, MCV 94.4, MCH 30.0, MCHC 31.8 L, RDW Std Deviation 47.2 H, RDW Coeff of Lai 13.7, Plt Count 222, MPV 10.7 Current Medications Acetaminophen (Acetaminophen 500 Mg Tablet) 1,000 mg PO Q6H [facility] Last Admin: 12/30/20 06:34 Dose: 1,000 mg Documented by: Docusate Sodium (Docusate Sodium 100 Mg Capsule) 100 mg PO BID [facility] Last Admin: 12/29/20 22:08 Dose: 100 mg Documented by: Lactated Ringer's () 1,000 mls @ 40 mls/hr IV .Q25H [facility] Stop: 12/30/20 15:23 Last Infusion: 12/30/20 06:40 Dose: 0 mls/hr Documented by: Ketorolac Tromethamine (Ketorolac 30 Mg/Ml Syringe) 30 mg IV Q6 [facility] Stop: 12/31/20 00:01 Last Admin: 12/30/20 06:34 Dose: 30 mg Documented by: Magnesium Chloride (Magnesium Chloride 64 Mg Delay Rel.Tablet) 128 mg PO DAILY PRN PRN PRN Reason: Constipation Nutritional Formula (Lactose Free) (Ensure Enlive 120 Ml Liquid) 120 ml PO [facility] Ondansetron HCl (Ondansetron Odt 4 Mg Tablet) 4 mg PO Q6H PRN PRN PRN Reason: NAUSEA Oxycodone HCl (Oxycodone 5 Mg Tablet) 5 - 10 mg PO Q4H PRN PRN PRN Reason: Pain Score 4-10 Sodium Chloride (0.9% Saline Lock 10 Ml Syringe) 10 - 40 ml IV UD PRN PRN Reason: SALINE FLUSH Medical Necessity - Tobacco Use Smoking Status: Never smoker Assessment/Plan All Active Problems Pelvic pain (Acute) Fibroid uterus (Acute) Stress incontinence (Acute)
--- NOTE | 2020-12-30 07:06 | PCM.DC ---
- Discharge Diagnoses Current Active Problems: Current Active and Chronic Problems Pelvic pain (Acute) Fibroid uterus (Acute) Stress incontinence (Acute) You will use the following diet at home:: No restrictions Your food should be the consistency of: Regular Discharge Activity: May Drive - once you feel strong enough to slam on a break or turn a steering wheel sharply, May not drive while taking narcotic pain medications., May Shower, - - no tub bathing, hot tubs or swimming no lifting over 5 pounds, no exercising, no sexual activity, no strenuous activity May resume sexual activity in: 6 weeks - after your visit if healed Weight Bearing Status: Weight bearing as tolerated Lifting Restrictions: nothing greater than 5-10 lbs for 6 weeks Call your doctor if your incision/area has: Continuous Slow Oozing, Sudden Increased Bleeding, Increased Pain/ Swelling, Foul Smelling Discharge, Swelling at the incision site Call your doctor if you observe: Fever of 101 or Higher, Inability to urinate, Inability to have a bowel movement, Calf discomfort, Uncontrolled pain Suture Line Care: Avoid Pulling/Pushing, Avoid Pinching/Bending Cleanse incision/area with: Soap & Water Allergies/Adverse Reactions: Allergies No Known Allergies Allergy (Verified 12/29/20 10:21) Medications to take at Discharge Escitalopram Oxalate [Lexapro] 10 mg PO DAILY 09/07/17 Losartan Potassium [Cozaar] 25 mg PO DAILY 12/22/20 Cephalexin [Keflex] 500 mg PO Q12 3 Days #6 cap 12/29/20 Docusate Sodium [Colace] 100 mg PO BID #30 cap 12/30/20 Ibuprofen [Motrin] 600 mg PO Q6H PRN PRN #30 tab 12/30/20 Oxycodone HCl/Acetaminophen [Percocet 5/325] 1 tablet PO Q6H PRN PRN 7 Days #15 tablet 12/30/20 The following prescriptions were given: Docusate Sodium [Colace] 100 mg PO BID #30 cap Transmission Status: P[facility] to [facility] Cephalexin [Keflex] 500 mg PO Q12 3 Days #6 cap [facility] Ibuprofen [Motrin] 600 mg PO Q6H PRN PRN #30 tab PRN Reason: Pain Score 6-10 Transmission Status: Pending to [facility] Oxycodone HCl/Acetaminophen [Percocet 5/325] 1 tablet PO Q6H PRN PRN 7 Days #15 tablet PRN Reason: Pain Score 6-10 Transmission Status: Received by [facility] Orders to be completed after discharge: ,Urine Time Frame: 1 Week, Facility: [facility], Location: Laboratory Primary Care Physician: Titus Elliott MD [Primary Care Provider] - Test Results: Test results from this visit will be discussed in further detail at your follow-up appointment, if applicable. Please Follow Up With: Stephanie Nunn MD When: 2 weeks, call for appt Please Follow Up With: Conchis Mensah DO When: 1 week Proposed Discharge Date: 12/29/20
[2020-12-30 07:29] VITALS: O2SAT 97
[2020-12-30 08:20] VITALS: BP 112/66; PULSE 47; RESP 18; TEMP 36.3; O2SAT 100
[2020-12-30] MEDS: Docusate Sodium 100 MG Capsule PO (08:28)
[2020-12-30 09:30] VITALS: BP 112/66; PULSE 47; RESP 16; TEMP 36.3; O2SAT 100
--- NOTE | 2020-12-30 10:43 | PHA.DC.MR ---
Pharmacy Service has performed discharge medication reconciliation for this patient. The patient's discharge medication list was reviewed for discrepancies and discrepancies were resolved. Home Medications Escitalopram Oxalate [Lexapro] 10 mg PO DAILY 09/07/17 Losartan Potassium [Cozaar] 25 mg PO DAILY 12/22/20 Cephalexin [Keflex] 500 mg PO Q12 3 Days #6 cap 12/29/20 Docusate Sodium [Colace] 100 mg PO BID #30 cap 12/30/20 Ibuprofen [Motrin] 600 mg PO Q6H PRN PRN #30 tab 12/30/20 Oxycodone HCl/Acetaminophen [Percocet 5/325] 1 tab PO Q6H PRN PRN 7 Days #15 tab 12/30/20
== END 2020-12-30 09:54 | disposition home or self-care (01) ==
LOC: MS3 12-30 07:41
PROVIDERS: Anesthesiology; Urology; Admitting Provider Obstetrics & Gynecology; PCP Family Medicine; Referring Provider Obstetrics & Gynecology; Visit Provider Obstetrics & Gynecology
PROC: 0UT9FZZ Resection of Uterus, Via Natural or Artificial Opening With Percutaneous Endoscopic Assistance (ICD-10-PCS; CPT 58552; principal; 2020-12-29 11:50)
PROC: 0TJB8ZZ Inspection of Bladder, Via Natural or Artificial Opening Endoscopic (ICD-10-PCS; CPT 57288; 2020-12-29 11:50)
DX: D25.1 Intramural leiomyoma of uterus (principal); N39.3 Stress incontinence (female) (male); Z20.828 Contact with and (suspected) exposure to other viral communicable diseases; F41.9 Anxiety disorder, unspecified; E78.5 Hyperlipidemia, unspecified; I10 Essential (primary) hypertension; E66.3 Overweight; Z68.26 Body mass index [BMI] 26.0-26.9, adult
CPT/HCPCS: 57288; 58552; 36415; 81025; 82962; 83735; 85027; 86850; 86900; 86901; 87426; 88307; 96374; 96376; 99218; 99251; C9803; J7120; C1758; G0378; G0379; G0463; J2405

== ENCOUNTER → 2021-04-04 13:11 | Outpatient (CLI) | payer OTHER, SELFPAY ==
[2020-12-29 10:45] VITALS: BMI 27.1
--- NOTE | 2021-04-04 13:45 | MRI_ITS ---
STUDY: MRI RIGHT KNEE REASON FOR EXAM: Female, 55 years old. injury 14 mos ago, feels unstable TECHNIQUE: Standardized fat and water weighted pulse sequences were obtained in all 3 orthogonal planes. COMPARISON: None. FINDINGS: Normal medial meniscus. There is diffuse, less than 50% thickness articular cartilage loss of the medial femorotibial compartment. Normal medial femoral condyle and tibial plateau. No visualized osteochondral defect or marrow edema or fracture. Normal medial collateral ligamentous complex (MCL). Normal distal semimembranosus, gracilis and semitendinosus tendons. Normal lateral meniscus. Normal hyaline cartilage of the lateral femorotibial compartment. Normal lateral femoral condyle and tibial plateau. Normal proximal tibiofibular articulation. Normal lateral collateral (fibular) ligament. Normal popliteus tendon. Normal biceps femoris tendon. There is edema with swelling and loss of definition of the of the ACL fascicles, producing a celery stick appearance, with preservation of the continuity of fibers, consistent with mucoid cystic degeneration. A small joint effusion is present. Normal posterior cruciate ligament (PCL). Normal congruent patellofemoral articulation. There is signal heterogeneity within the articular cartilage of the patellofemoral compartment without significant thinning and with an intact articular cartilage surface. Normal medial and lateral patellar retinaculum. Normal quadriceps tendon. Normal patellar tendon. Normal Hoffa''s fat pad. The soft tissues are unremarkable. The otherwise visualized osseous structures are unremarkable. MRI/Lower Ext Joint Only (Routine) IMPRESSION: 1. No visualized osteochondral defect or marrow edema or fracture. 2. Small joint effusion 3. Mucoid degeneration of the ACL Electronically Signed: Georges Braswell MD at 16:29 EDT , Service support ,
== END ==
PROVIDERS: PCP Internal Medicine; Referring Provider Orthopaedic Surgery; Visit Provider Orthopaedic Surgery
DX: S80.01XA Contusion of right knee, initial encounter (principal)
CPT/HCPCS: 73721